=== PATIENT | female | born 1950 | race Caucasian/White ===

== ENCOUNTER → 2017-01-01 | Day surgery (SDC) | payer MEDICARE ==
[~2017-01-01] VITALS: Ht 167.6 cm; Wt 80.0 kg
[~2017-01-01] MED LIST: 0.9% Sodium Chloride 1,000 ML IV ONE; ASCO1500 PO; ASPI-973 PO; CALC600T12 PO; CHOL10008 PO; FLAX100038 PO; GLUC-123 PO; IBUP-1827 PO; LACT1CAP73 PO; METH5TAB5 PO; OMEG500C PO; PANT40TA3 PO; Sodium Chloride LOK Flush 10 mL Syringe IV PRN; TRIA10.8 NS; UBID100C16 PO; VIT1TABL83 PO; fentaNYL-PF 50 mCg/mL 2 mL Inj IVPUSH PRN
[2017-01-01 14:44] VITALS: BP 119/74; PULSE 77; RESP 16; O2SAT 96
[2017-01-01 15:54] VITALS: BP 130/73; PULSE 78; RESP 16; O2SAT 96
[2017-01-01 16:00] VITALS: BP 111/68; PULSE 74; RESP 16; O2SAT 97
[2017-01-01 16:08] VITALS: BP 110/61; PULSE 74; RESP 16; O2SAT 96
--- NOTE | 2017-01-01 16:19 | ENDO ---
[address] [address] ENDOSCOPY PROCEDURE PATIENT: KP MAGANA : 1950 MR#: [id number] ADMIT: 01/01/2017 JOB ID: [id number] DATE: 01/01/2017 TYPE OF OPERATION: Esophagogastroduodenoscopy, biopsy, colonoscopy. PREOPERATIVE DIAGNOSIS: Gastroesophageal reflux disease, dysphagia, and colorectal cancer screening. POSTOPERATIVE DIAGNOSIS: 1. Normal upper endoscopy, status post biopsy. 2. Mild sigmoid diverticulosis. 3. Tortuous sigmoid colon. 4. Small internal hemorrhoids. ANESTHESIA: Fentanyl 150 mcg, Versed 5 mg administered. COMPLICATION: None. ESTIMATED BLOOD LOSS: Minimal. DESCRIPTION OF PROCEDURE: After risks and benefits explained to the patient informed consent was obtained. After anesthesia administered, upper endoscope was then inserted into mouth, intubated into the esophagus, stomach, second portion of duodenum. Mucosa carefully examined. After procedure was done, the scope withdrawn, procedure terminated. Colonoscope was then inserted from rectum to cecum. Mucosa carefully examined. Prep of the patient was excellent. After procedure was done, the scope was withdrawn and the procedure terminated. FINDINGS: Upon inspection of the esophagus, esophagus was normal without masses, ulcers, or lesions. Z-line located at 40 cm from incisors. Upon entering the stomach, the stomach was normal without masses, ulcers, or lesions. Retroflexion normal. Duodenal bulb, first and second portion were normal. Biopsies taken of antrum, body, mid and distal esophagus. Upon inspection of the anus no masses, hemorrhoids, ulcers, fissures that were seen. Throughout the entire examination, there were no polyps, masses, or lesions. There was mild sigmoid diverticulosis and tortuous sigmoid colon from prior hysterectomy. Retroflexion showed small internal hemorrhoids. IMPRESSION: 1. Small internal hemorrhoids. 2. Tortuous sigmoid colon from prior surgery. 3. Mild sigmoid diverticulosis. 4. Normal upper endoscopy, status post biopsy. RECOMMENDATION: 1. High-fiber diet. 2. Await pathology results. 3. Repeat colonoscopy in 10 years for colorectal cancer screening. Follow up in GI clinic as needed.
--- NOTE | 2017-01-06 11:23 | PATH ---
SURGICAL PATHOLOGY Attending Physician:Ruben Mena MD CASE STATUS: Signed Out PATIENT NAME: KP MAGANA PID: [id number] : 1950 DATE COLLECTED:01/01/2017 00:00 SPECIMEN: 1: Stomach, Antrum, Biopsy 2: Gastric, Biopsy 3: Esophagus, Biopsy 4: Esophagus, Biopsy CLINICAL HISTORY: 1). GASTRIC ANTRUM BIOPSY, RULE OUT H.PYLORI 2). GASTRIC BODY BIOPSY 3). DISTAL ESOPHAGUS BIOPSY 4). MID ESOPHAGUS BIOPSY FINAL DIAGNOSIS: 1. Gastric Antrum Biopsy: Mild chronic gastritis involving antral mucosa. Negative for evidence of Helicobacter on H&E stain. Negative for intestinal metaplasia. Negative for dysplasia and malignancy. 2. Gastric Body Biopsy: Fragments of gastric fundic mucosa negative for significant inflammation. Negative for evidence of Helicobacter on H&E stain. Negative for intestinal metaplasia. Negative for dysplasia and malignancy. 3. Distal Esophagus Biopsy: Squamous mucosa and [id number] mucosa with chronic active inflammation and reactive epithelial changes suggestive of chronic reflux. Negative for specialized metaplasia of Panchal's type esophagus. Negative for dysplasia and malignancy. Negative for squamous intraepithelial eosinophils. 4. Mid Esophagus Biopsies: Fragments of squamous epithelium, negative for significant atypia. Negative for intraepithelial eosinophils. ICD10: K29.70 GROSS DESCRIPTION: The specimen is received in four formalin filled containers labeled with the patient's name. 1). The specimen is sublabeled "gastric antrum" and consists of 2 portions of tissue which aggregate to 0.3 x 0.2 x 0.2 CM. The specimen is entirely submitted in cassettes 1A. 2). The specimen is sublabeled "gastric body" and consists of 2 portions of tissue which aggregate to 0.4 x 0.3 x 0.2 CM. The specimen is entirely submitted in cassette 2A. 3). The specimen is sublabeled "distal esophagus" and consists of 2 portions of tissue which aggregate to 0.3 x 0.3 x 0.2 CM. The specimen is entirely submitted in cassette 3A. 4). The specimen is sublabeled "mid esophagus" and consists of 2 portions of tissue which aggregate to 0.3 x 0.3 x 0.2 CM. The specimen is entirely submitted in cassette 4A. 01/02/2017 [facility] ICD-9 CODES: CPT CODES: 1: 57709 2: 54648 3: 71360 4: 58540 Electronically Signed Out Isidoro Rabago MD [facility] [address], [place] [address] Technical component performed at [facility], [facility] [address], [place], [address]
== END | disposition home or self-care (01) ==
LOC: END 01:02
PROVIDERS: ATTEND Internal Medicine Gastroenterology
DX: Z12.11 Encounter for screening for malignant neoplasm of colon (principal); K57.30 Diverticulosis of large intestine without perforation or abscess without bleeding; K64.8 Other hemorrhoids; K29.50 Unspecified chronic gastritis without bleeding; K21.9 Gastro-esophageal reflux disease without esophagitis; I10 Essential (primary) hypertension; E03.9 Hypothyroidism, unspecified; F41.9 Anxiety disorder, unspecified; M85.80 Other specified disorders of bone density and structure, unspecified site; Z79.82 Long term (current) use of aspirin
CPT/HCPCS: 43239; 99153; G0121; G0500; J2250; J3010; J7030